=== PATIENT | female | born 1960 | race African-American/Black ===

== ENCOUNTER 2020-03-04 13:57 | Emergency (ER) | payer OTHER ==
[~2020-03-04] VITALS: Ht 157.5 cm; Wt 63.5 kg
[~2020-03-04 13:57] MED LIST: ASA5UEC; AZITHROMYCIN 2250 MG PO; BAYER CHEWABLE81 MG PO; BENADRYL A12.5 MG/5 PO; BENTYL 20 MG TA20 M1 PO; DIPHENHIST50 MG PO; FLEXERIL PO; MIRALAX17 GM PO; NORCO 5-325 TA1 EAC1 PO; PREDNISONE 10 M10 MG PO; PREDNISONE 20 M20 M1 PO; PREDNISONE 20 M20 MG PO; PREMARIN0.3 MG; PREMARIN0.625 MG; TRIAMCINOLONE A80 G2 TOP; VENTOLIN HFA 1818 GM INH; ZOFRAN4 MG PO
[2020-03-04] MEDS ORDERED: FLONASE 0.05%50 MCG NARES (14:08)
[2020-03-04] MEDS ORDERED: MAGNESIUM250 M1 PO (14:09)
[2020-03-04] MEDS ORDERED: LINZESS145 MCG PO (14:09)
[2020-03-04] MEDS ORDERED: HYDROXYZINE HCL25 M2 PO (14:09)
[2020-03-04] MEDS ORDERED: NORCO 5-325 TA1 EAC2 PO (16:40)
[2020-03-04] MEDS ORDERED: MEDROLDOSEPACK PO (16:40)
[2020-03-04 17:25] VITALS: BP 148/76
== END 2020-03-04 17:29 | disposition home or self-care (01) ==
LOC: M.ERS 13:57
DX: M54.31 Sciatica, right side (principal); G89.29 Other chronic pain; M79.7 Fibromyalgia; Z88.5 Allergy status to narcotic agent; Z88.8 Allergy status to other drugs, medicaments and biological substances; Z90.710 Acquired absence of both cervix and uterus